=== PATIENT | female | born 1975 | race Caucasian/White ===

== ENCOUNTER → 2018-06-29 | Outpatient (CLI) | payer OTHER | LOC: MC.RAD 10:40 | DX: Z12.31 Encounter for screening mammogram for malignant neoplasm of breast (principal) ==

== ENCOUNTER → 2019-07-04 | Outpatient (CLI) | payer OTHER | LOC: COL.RAD 10:27 | DX: I86.8 Varicose veins of other specified sites (principal); R10.11 Right upper quadrant pain | CPT/HCPCS: Q9967 ==